=== PATIENT | female | born 1985 | race Caucasian/White ===

== ENCOUNTER 2018-08-21 12:25 | Emergency (ER) | payer OTHER ==
[~2018-08-21] VITALS: Ht 154.9 cm; Wt 75.0 kg
[~2018-08-21 12:25] MED LIST: ACET-66 PO; IBUP-675 PO; IBUP200C5 PO
[2018-08-21 12:33] VITALS: BP 136/82
== END 2018-08-21 15:18 | disposition left against medical advice (07) ==
LOC: EMS 12:28
DX: R07.9 Chest pain, unspecified (principal); Z53.21 Procedure and treatment not carried out due to patient leaving prior to being seen by health care provider
CPT/HCPCS: 93005